=== PATIENT | male | born 1970 | race Caucasian/White ===

== ENCOUNTER 2019-11-05 13:32 | Emergency (ER) | payer SELFPAY ==
[~2019-11-05] VITALS: Ht 188 cm; Wt 81.6 kg
[2019-11-05 13:32] VITALS: BP 114/68
== END 2019-11-05 20:11 | disposition left against medical advice (07) ==
LOC: EDBD 13:32 → ER 13:32
DX: T14.8XXA Other injury of unspecified body region, initial encounter (principal); F41.9 Anxiety disorder, unspecified; V49.9XXA Car occupant (driver) (passenger) injured in unspecified traffic accident, initial encounter; Y93.89 Activity, other specified; Y92.89 Other specified places as the place of occurrence of the external cause; Y99.8 Other external cause status
CPT/HCPCS: 70450; 72125; 73080